=== PATIENT | female | born 1950 | race Caucasian/White ===

== ENCOUNTER 2023-10-29 22:25 | Emergency (ER) | payer OTHER ==
[~2023-10-29] VITALS: Ht 157.5 cm; Wt 84.5 kg
[2023-10-29] MEDS: diphenhdrAMINE HCL 50 MG/1 ML VL IV ONE (22:56)
[2023-10-29] MEDS: methylPREDNISolone SOD SUCC 125 MG/2 ML VL IV ONE (22:56)
[2023-10-29] MEDS: SODIUM CHLORIDE 0.9% 1,000 ML IV ONE (22:56)
[2023-10-30] MEDS ORDERED: METH4PAK PO (00:40)
[2023-10-30] MEDS ORDERED: DIPH25CA66 PO (00:40)
[2023-10-30 01:59] VITALS: BP 133/69; PULSE 82; RESP 16; TEMP 98.2; O2SAT 96
== END 2023-10-30 01:59 | disposition home or self-care (01) ==
LOC: ER 22:25
DX: T78.40XA Allergy, unspecified, initial encounter (principal); R06.02 Shortness of breath; E11.9 Type 2 diabetes mellitus without complications; E78.5 Hyperlipidemia, unspecified; I10 Essential (primary) hypertension; Z90.710 Acquired absence of both cervix and uterus; X58.XXXA Exposure to other specified factors, initial encounter
CPT/HCPCS: 96361; 96374; 96375; 99284; J1200; J2930; J7030